=== PATIENT | male | born 1970 | race Hispanic/Latino ===

== ENCOUNTER 2024-06-21 07:27 | Day surgery (SDC) | payer OTHER ==
[2024-06-19 09:03] LABS: BASOPHILS # (AUTO) 0.03 K/uL (0.00-0.20); BASOPHILS % (AUTO) 0.5 % (0.0-5.0); EOSINOPHILS % (AUTO) 3.6 % (0.0-8.0); HEMATOCRIT 36.3 % (42-54); IMMATURE GRANULOCYTE ABSOLUTE 0.03 K/uL (0-1); LYMPHOCYTES # (AUTO) 1.2 K/uL (1.0-4.8); LYMPHOCYTES % (AUTO) 22.5 % (21.0-51.0); MEAN CORPUSCULAR HEMOGLOBIN 33.1 pg (27.0-33.0); MEAN CORPUSCULAR HGB CONC 34.4 g/dL (32.0-36.0); MONOCYTES # (AUTO) 0.4 K/uL (0.1-1.0); MONOCYTES % (AUTO) 7.8 % (3.0-13.0); NEUTROPHILS # (AUTO) 3.6 K/uL (1.8-7.7); NEUTROPHILS % (AUTO) 65.1 % (40.0-77.0); PLATELET COUNT (AUTO) 166 K/uL (130-400); RED BLOOD CELL COUNT(AUTO) 3.78 MIL/uL (4.50-6.20); RED CELL DISTRIBUTION WIDTH 12.7 % (11.0-15.5); WHITE BLOOD COUNT (AUTO) 5.5 K/uL (4.8-10.8)
[2024-06-19 09:08] VITALS: BP 109/59; PULSE 62; RESP 18; TEMP 97.7
[2024-06-19 09:10] LABS: CREATININE 1.1 mg/dL (0.5-1.3); POTASSIUM 3.8 mmol/L (3.5-5.1)
[~2024-06-21] VITALS: Ht 172.7 cm; Wt 86.8 kg
[~2024-06-21 07:27] MED LIST: AMIO200T68 PO; APIX5TAB PO; LISI10TA24 PO; METF-446 PO; METO-391 PO; ROSUVASTATIN PO; SEMA1PEN3 SQ; TOPI100T37 PO; [UNRECOGNIZED DRUG - CODE] PO
[2024-06-21] MEDS ORDERED: 0.9%NACL 1000ML 1,000 ML IV SCH (07:30)
--- NOTE | 2024-06-21 07:40 | NUR ---
consult: dr. al ariza viewed ekg. procedure cancelled. office will call with follow up appointment.
--- NOTE | 2024-06-21 07:42 | EKG ---
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
== END 2024-06-21 07:46 | disposition home or self-care (01) ==
LOC: DAH 07:27
PROVIDERS: ATTEND Internal Medicine Cardiovascular Disease
DX: Z01.818 Encounter for other preprocedural examination (principal); I48.19 Other persistent atrial fibrillation; Z53.8 Procedure and treatment not carried out for other reasons
CPT/HCPCS: 36415; 80048; 85025; 93005

== ENCOUNTER 2024-10-31 05:58 | Day surgery (SDC) | payer OTHER ==
[2024-10-29 09:13] LABS: IMMATURE GRANULOCYTE ABSOLUTE 0.05 K/uL (0-1); NUCLEATED RED BLOOD CELLS 0.0 % (0.0-0.19); PLATELET COUNT (AUTO) 196 K/uL (130-400); RED BLOOD CELL COUNT(AUTO) 3.80 MIL/uL (4.50-6.20); RED CELL DISTRIBUTION WIDTH 12.6 % (11.0-15.5); WHITE BLOOD COUNT (AUTO) 5.2 K/uL (4.8-10.8)
[2024-10-29 09:30] LABS: INR 1.02 (0.85-1.15)
[2024-10-29 09:34] LABS: CREATININE 1.0 mg/dL (0.5-1.3); GLOMERULAR FILTR. RATE CALC 89.0 mL/min (>90); GLUCOSE,RANDOM 117.0 mg/dL (70-105); SODIUM SERUM 139.0 mmol/L (136-145); UREA NITROGEN, BLOOD 16.0 mg/dL (7-18)
--- NOTE | 2024-10-29 09:43 | EKG ---
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
[2024-10-31] VITALS (16 sets, daily range): BP systolic 89–112; BP diastolic 51–69; PULSE 63–83; RESP 15–21; TEMP 97–97.3
[~2024-10-31 05:58] MED LIST changes: -AMIO200T68 PO; +AMIO200T73 PO; +EMPA1TAB7 PO; +HYDR-3830 PO; +HYDR113O TP; +IPRA21SP NS; +KETO-99 OU; +LIDO700A30 TP; +LORA10TA7 PO; -METF-446 PO; +MIRT7.5T11 PO; +SUMA50TA17 PO; +TOPI-258 PO; -TOPI100T37 PO; +TRIA15OI6 TP; +diclofenac; +diclofenac 1% TP
[2024-10-31] MEDS: 0.9%NACL 1000ML 1,000 ML IV ONE (06:53)
[2024-10-31] MEDS ORDERED: MIDAZOLAM HCL 1 MG/ML 2ML VIAL ONE (06:54)
[2024-10-31] MEDS ORDERED: HYDR-3830 PO ×2 (07:14→07:15)
[2024-10-31] MEDS ORDERED: LIDOCAINE PF 100MG/5ML (2%) SYRINGE 5ML ONE (07:16)
[2024-10-31] MEDS ORDERED: HEParin-NS 1,000 UNIT/500 ML 500 ML IV ONE (07:42)
[2024-10-31] MEDS ORDERED: LIDOCAINE HCL 400MG/20ML VIAL ONE (07:44)
[2024-10-31] MEDS ORDERED: SODIUM BICARB 50MEQ 50ML VIAL 50 ML ONE (07:45)
[2024-10-31] MEDS ORDERED: GLYCOPYRROLATE 0.2 MG/ML 5 ML VIAL ONE (11:12)
[2024-10-31] MEDS ORDERED: NEOSTIGMINE METHYLSULFATE 1MG/ML IV ONE (11:12)
[2024-10-31] MEDS ORDERED: PANT40TA55 PO (11:52)
[2024-10-31] MEDS ORDERED: SUCR1ORA15 PO (11:52)
[2024-10-31] MEDS: SUCRALFATE 1 GM/10 ML PO ONE (14:02)
== END 2024-10-31 15:00 | disposition home or self-care (01) ==
LOC: DAH 05:58
PROVIDERS: ATTEND Internal Medicine Cardiovascular Disease
DX: I48.19 Other persistent atrial fibrillation (principal); I10 Essential (primary) hypertension; E11.9 Type 2 diabetes mellitus without complications; I44.0 Atrioventricular block, first degree; G43.909 Migraine, unspecified, not intractable, without status migrainosus; G47.33 Obstructive sleep apnea (adult) (pediatric); Z99.89 Dependence on other enabling machines and devices; Z79.01 Long term (current) use of anticoagulants; Z79.899 Other long term (current) drug therapy; Z98.890 Other specified postprocedural states
CPT/HCPCS: 80048; 85025; 85610; 85730; 36415; 93005; 93656; 93655; 93657 ×2; 82948; C1894 ×3; C1732 ×3; A4649 ×2; C1760 ×3; C1766; J3010 ×2; J3490 ×4; J7030; J2003; J2720 ×2; J1644 ×3; J2250; J2704; J2710; J2371 ×2; A4215; A4222; A4221; A4663; A4216; A4606; A4223 ×3